=== PATIENT | female | born 1995 | race Caucasian/White ===

== ENCOUNTER 2017-07-16 13:08 | Emergency (ER) | payer OTHER ==
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
== END 2017-07-16 16:18 | disposition home or self-care (01) ==
LOC: JP.ED 13:08
DX: T76.21XA Adult sexual abuse, suspected, initial encounter (principal); Z88.1 Allergy status to other antibiotic agents; F41.9 Anxiety disorder, unspecified; F32.9 Major depressive disorder, single episode, unspecified; J45.909 Unspecified asthma, uncomplicated; Z79.899 Other long term (current) drug therapy
CPT/HCPCS: 36415; 80305; 81001; 81025; 99285; G0480